=== PATIENT | male | born 1970 | race Two or more races ===

== ENCOUNTER 2016-06-09 08:47 | Observation (INO) | payer SELFPAY ==
--- NOTE | 2016-06-09 10:34 | ER Document Report ---
ED Cardiac - General Mode of Arrival: Medic Information source: Patient - HPI Patient complains to provider of: Chest pain Is the pain a: New problem Chest pain radiation location: None Cardiac risk factors: Dyslipidemia Associated symptoms: None <JAIME DARBY - Last Filed: 06/09/16 11:27> <VANESSATERESSA - Last Filed: 06/09/16 14:11> - General Chief Complaint: Chest Pain Stated Complaint: CHEST PAIN Notes: Patient is a 45-year-old Swiss-speaking male, who speaks some Sinhala, that presents to the emergency department today with complaints of chest pain with onset at 0700 this morning. Patient was at work when his chest pain began. Patient indicates his pain is in his left anterior chest. Patient went to an urgent care who called EMS to have him brought here for evaluation. Patient states he has hyperlipidemia but denies a history of coronary artery disease. Patient received nitroglycerin and aspirin prior to arrival which she states relieved his pain for the most part, but he states he still has a small amount of pain currently. Patient states the pain did not radiate and he describes it as constant and sharp. (JAIME DARBY) Past Medical History - General Information source: Patient - Social History Smoking Status: Current Every Day Smoker Cigarette use (# per day): Yes Frequency of alcohol use: None Drug Abuse: None Lives with: Family Family History: None. denies: CAD - Past Medical History Cardiac Medical History: Reports: Hx Hypercholesterolemia Past Surgical History: Reports: Hx Herniorrhaphy <JAIME DARBY - Last Filed: 06/09/16 11:27> Review of Systems - Review of Systems Constitutional: No symptoms reported EENT: No symptoms reported Cardiovascular: See HPI, Chest pain Respiratory: No symptoms reported Gastrointestinal: No symptoms reported Genitourinary: No symptoms reported Male Genitourinary: No symptoms reported Musculoskeletal: No symptoms reported Skin: No symptoms reported Hematologic/Lymphatic: No symptoms reported Neurological/Psychological: No symptoms reported -: Yes All other systems reviewed and negative <JAIME DARBY - Last Filed: 06/09/16 11:27> Physical Exam - General General appearance: Appears well, Alert - HEENT Head: Normocephalic, Atraumatic Eyes: Normal Extraocular movements intact: Yes Neck: Normal. No: Carotid bruit - Respiratory Respiratory status: No respiratory distress Chest status: Nontender Breath sounds: Normal - Cardiovascular Rhythm: Regular Heart sounds: Normal auscultation Murmur: No - Abdominal Inspection: Normal Distension: No distension Bowel sounds: Normal Tenderness: Nontender - Extremities General upper extremity: Normal inspection, Normal ROM. No: Edema General lower extremity: Normal inspection, Normal ROM. No: Edema - Neurological Neuro grossly intact: Yes Cognition: Normal Speech: Normal - Psychological Associated symptoms: Normal affect, Normal mood - Skin Skin Temperature: Warm Skin Moisture: Dry Skin Color: Normal <JAIME DARBY - Last Filed: 06/09/16 11:27> Course - Laboratory Result Diagrams: 06/09/16 09:55 <JAIME DARBY - Last Filed: 06/09/16 11:27> - Laboratory Result Diagrams: 06/09/16 09:55 06/09/16 09:55 - Diagnostic Test Radiology reviewed: Image reviewed, Reports reviewed - Chest x-ray does not show an acute process - EKG Interpretation by Ca EKG shows normal: Sinus rhythm, [place], Intervals, QRS Complexes, ST-T Waves Rate: Normal - 71 Rhythm: NSR - Consults Dr. Roblero Time consulted: 12:30 Consulted provider: will come to ER <TERESSA MENDEZ - Last Filed: 06/09/16 14:11> - Re-evaluation Re-evalutation: 06/09/16 12:30 Patient began having increasing chest pain, he was given one nitroglycerin by the nurse reports the pain went away with that nitroglycerin. (TERESSA MENDEZ) - Vital Signs Vital signs: Temp Pulse Resp BP Pulse Ox 20 117/73 99 06/09/16 13:25 06/09/16 13:21 06/09/16 13:25 (TERESSA MENDEZ) - Laboratory Laboratory results interpreted by wa: 06/09/16 06/09/16 09:55 09:55 WBC 3.7 L Seg Neutrophils % 26.7 L Lymphocytes % 58.0 H Eosinophils % 7.1 H Absolute Neutrophils 1.0 L Creatine Kinase 367 H (TERESSA MENDEZ) Discharge <JAIME DARBY - Last Filed: 06/09/16 11:27> - Discharge Admitting Provider: Hospitalist Unit Admitted: Telemetry <TERESSA MENDEZ - Last Filed: 06/09/16 14:11> - Discharge Clinical Impression: Chest pain Condition: Stable Disposition: ADMITTED OBSERVATION Scribe Attestation: 06/09/16 14:11 I personally performed the services described in the documentation, reviewed and edited the documentation which was dictated to the scribe in my presence, and it accurately records my words and actions. (TERESSA MENDEZ) Scribe Documentation - Scribe Written by Scrfaye:: Slick Grubbs, [id number] 06/09/2016 acting as scribe for :: Vanessa <JAIME DARBY - Last Filed: 06/09/16 11:27>
[2016-06-09 11:04] LABS: ABSOLUTE EOSINOPHILS # (AUTO) 0.3 10^3/uL (0.0-0.6); ABSOLUTE LYMPHOCYTES (AUTO) 2.1 10^3/uL (0.5-4.7); ABSOLUTE MONOCYTES (AUTO) 0.3 10^3/uL (0.1-1.4); BASOPHILS % (AUTO) 0.9 % (0-2); EOSINOPHILS % (AUTO) 7.1 % (0-6); HEMATOCRIT 43.9 % (37.9-51.0); HGB HCT DIFFERENCE 1.1; MEAN CORPUSCULAR HEMOGLOBIN 30.9 pg (27.0-33.4); MEAN CORPUSCULAR HGB CONC 34.3 g/dL (32.0-36.0); MEAN CORPUSCULAR VOLUME 90 fl (80-97); MONOCYTES % (AUTO) 7.3 % (3-13); RED BLOOD COUNT 4.86 10^6/uL (4.35-5.55); RED CELL DISTRIBUTION WIDTH 13.1 % (11.5-14.0); SEGMENTED NEUTROPHILS % (AUTO) 26.7 % (42-78); WHITE BLOOD COUNT 3.7 10^3/uL (4.0-10.5)
[2016-06-09] MEDS ORDERED: NITROGLYCERIN 0.4 MG/TAB 25 TAB/BOTTLE SL ONE (11:21)
[2016-06-09 11:24] LABS: CREATINE KINASE MB 0.89 ng/mL (<4.55)
[2016-06-09 11:25] LABS: TROPONIN I < 0.012 ng/mL
[2016-06-09 12:43] LABS: ADD ON TESTING BLD IN LAB ACKNOWLEDGE
[2016-06-09] MEDS ORDERED: ACETAMINOPHEN 325 MG TABLET PO PRN (12:55)
[2016-06-09 13:12] LABS: ALANINE AMINOTRANSFERASE 28 U/L (21-72); ALBUMIN 4.2 g/dL (3.5-5.0); ALKALINE PHOSPHATASE 70 U/L (38-126); ANION GAP 10 (5-19); ASPARTATE AMINO TRANSFERASE 25 U/L (17-59); BILIRUBIN,TOTAL 0.8 mg/dL (0.2-1.3); BLOOD UREA NITROGEN 20 mg/dL (7-20); CALCIUM 9.7 mg/dL (8.4-10.2); CARBON DIOXIDE 26 mmol/L (22-30); CHLORIDE 105 mmol/L (98-107); GLUCOSE 90 mg/dL (75-110); POTASSIUM 4.8 mmol/L (3.6-5.0); SODIUM 141.1 mmol/L (137-145); TOTAL PROTEIN 7.3 g/dL (6.3-8.2)
--- NOTE | 2016-06-09 13:27 | EKG REPORT ---
SEVERITY:- DEFECTIVE ECG - SINUS RHYTHM : Confirmed by: Bradley Lynch MD 09-Jun-2016 13:26:31
[2016-06-09 15:16] LABS: CREATINE KINASE MB 0.95 ng/mL (<4.55)
[2016-06-09 15:19] LABS: TROPONIN I < 0.012 ng/mL
[2016-06-09] MEDS ORDERED: ENOXAPARIN SODIUM INJ 40 MG/0.4 ML DISP.SYRIN SUBCUT ONE (17:00)
--- NOTE | 2016-06-09 17:58 | PDOC H&P ---
History of Present Illness Admission Date/PCP: 06/09/16 12:55 Patient complains of: Chest pain History of Present Illness: FREDO HERMOSILLO is a 45 year old male that presents to the emergency department via EMS for chest pain. Chest pain was relieved by nitroglycerin. Patient has history of hyperlipidemia and takes a cholesterol medicine but does not recall the name of the medication. He gets his medications filled at [facility] pharmacy. Patient is and Citizen Of [place]-speaking only. History is obtained by means of diversional therapist's assistant. Past Medical History Cardiac Medical History: Reports: Hyperlipidema EENT Medical History: Reports: None Neurological Medical History: Reports: None Endocrine Medical History: Reports: None Past Surgical History Past Surgical History: Reports: Herniorrhaphy Social History Information Source: Patient Lives with: Family Smoking Status: Current Every Day Smoker Frequency of Alcohol Use: None Hx Recreational Drug Use: No Hx Prescription Drug Abuse: No - Advance Directive Resuscitation Status: Full Code Family History Family History: None, CAD - Father age 74 Parental Family History Reviewed: Yes Children Family History Reviewed: Yes Sibling(s) Family History Reviewed.: Yes Medication/Allergy Home Medications: No Home Medications 06/09/16 Allergies/Adverse Reactions: No Known Allergies Allergy (Unverified 06/09/16 14:44) Review of Systems Constitutional: ABSENT: chills, fever(s), headache(s), weight gain, weight loss Eyes: ABSENT: visual disturbances Ears: ABSENT: hearing changes Cardiovascular: PRESENT: chest pain. ABSENT: dyspnea on exertion, edema, orthropnea, palpitations Respiratory: ABSENT: cough, hemoptysis Gastrointestinal: ABSENT: abdominal pain, constipation, diarrhea, hematemesis, hematochezia, nausea, vomiting Genitourinary: ABSENT: dysuria, hematuria Musculoskeletal: ABSENT: joint swelling Integumentary: ABSENT: rash, wounds Neurological: ABSENT: abnormal gait, abnormal speech, confusion, dizziness, focal weakness, syncope Psychiatric: ABSENT: anxiety, depression, homidical ideation, suicidal ideation Endocrine: ABSENT: cold intolerance, heat intolerance, polydipsia, polyuria Hematologic/Lymphatic: ABSENT: easy bleeding, easy bruising Physical Exam Vital Signs: Temp Pulse Resp BP Pulse Ox 98 F 78 16 132/86 H 100 06/09/16 16:08 06/09/16 16:08 06/09/16 16:08 06/09/16 16:08 06/09/16 16:08 Intake & Output 06/08/16 06/09/16 06/10/16 06:59 06:59 06:59 Intake Total 330 Output Total 400 Balance -70 Weight 72.575 kg PHYSICAL EXAM: GENERAL: Appears well, no acute distress HEENT: Normocephalic, no scleral icterus, conjunctiva clear, EOEM intact, PERRLA , moist mucous membranes NECK: trachea midline, no thyromegally RESPIRATORY: Clear to auscultation, no wheezes/rhonchi CARDIAC: Regular rate and rhythm, no murmur/alejandro/rub ABDOMEN: Soft, no distension, no tenderness, no guarding, normal bowel sounds, negative Desai sign RECTAL: deferred : deferred EXTREMITIES: No edema, cyanosis, clubbing MUSCULOSKELETAL: No joint swelling or deformity VASCULAR: normal peripheral pulses NEUROLOGIC: Alert, oriented to person/place/time, normal speech, cranial nerves grossly intact, 5/5 strength in all extremities, tactile sensation intact in all extremities SKIN: No rash, no wounds, no worrisome skin lesions PSYCHIATRIC: Normal mood, normal affect Results Laboratory Results: 06/09/16 06/09/16 14:27 14:27 Creatine Kinase 349 H CK-MB (CK-2) 0.95 Troponin I < 0.012 EKG Comments: Sinus rhythm, inverted T waves in lead III Impressions: Chest X-Ray 06/09/16 10:36 IMPRESSION: NO SIGNIFICANT RADIOGRAPHIC FINDING IN THE CHEST. Assessment & Plan - Diagnosis (1) Chest pain Is this a current diagnosis for this admission?: YesPlan: Patient will be placed in observation status. Monitor on telemetry. Check serial cardiac enzymes to rule out acute MS. Start aspirin. Stress test in a.m. (2) Tobacco abuse Is this a current diagnosis for this admission?: Yes (3) Hypercholesterolemia Is this a current diagnosis for this admission?: YesPlan: Verify home dose of medication from patient's pharmacy. Check lipid panel in morning. - Time Time Spent: 50 to 70 Minutes Anticipated discharge: Home Within: within 24 hours
[2016-06-09] MEDS ORDERED: INFLUENZA ADLT QUAD (36MOS+) 2016-17 VAC 0.5 ML SYR IM PRN (18:39)
[2016-06-09 22:03] LABS: CREATINE KINASE MB 0.69 ng/mL (<4.55)
[2016-06-09 22:06] LABS: TROPONIN I < 0.012 ng/mL
[2016-06-10 03:58] LABS: CHOLESTEROL 244.07 mg/dL (0-200); Direct HDL 51 mg/dL (>40); TRIGLYCERIDES 244 mg/dL (<150)
[2016-06-10 04:07] LABS: VLDL CHOLESTEROL 48.8 mg/dL (10-31)
[2016-06-10 04:12] LABS: DIRECT LDL 145 mg/dL (<100)
[2016-06-10 04:13] LABS: CREATINE KINASE MB 0.5 ng/mL (<4.55); TROPONIN I 0.021 ng/mL
[2016-06-10] MEDS ORDERED: ENOXAPARIN SODIUM INJ 40 MG/0.4 ML DISP.SYRIN SUBCUT SCH ×2 (08:00)
[2016-06-10] MEDS ORDERED: ASPIRIN 81 MG TABLET, ENT COATED PO SCH (10:00)
--- NOTE | 2016-06-10 16:07 | DRAGON STRESS TEST REPORT ---
EXERCISE TREADMILL CARDIOLITE STRESS TEST USING SINGLE PHOTON EMMISION COMPUTERIZED TOMOGRAPHIC. DATE OF PROCEDURE: June 10, 2016 INDICATION : Chest pain CARDIAC RISK FACTORS: Dyslipidemia, family history of CAD RESTING EKG: Sinus rhythm, no Baseline ST segment changes noted. STRESS EKG: No significant changes noted with exercise. REASON FOR TERMINATION: Dyspnea and fatigue. Patient denied any chest pain. PROCEDURE REPORT: Baseline heart rate 78 beats per minute with blood pressure of 142/90. Patient had no significant complaints. Patient exercised on standard Andres protocol for a total of 8 minutes and 27 seconds. Heart rate at peak exercise 144, at 81% of predicted maximum with a blood pressure at peak exercise 226/90. No significant additional ST segment changes were noted. Patient had no significant complaints or complications during the procedure or postprocedure. CONCLUSIONS: Negative for significant EKG changes with exercise at achieved heart rate and blood pressure response. Exercise tolerance is felt to be average. Clinical correlation and correlation with nuclear images is recommended. NUCLEAR DATA: At rest the patient was given 10.81 millicuries of technetium 99 sestamibi injected intravenously. As per protocol rest gated SPECT images were obtained. Subsequently the patient was injected with 31.3 millicuries of technetium 99 sestamibi compound at peak exercise, followed by flush with normal saline. Patient continued to exercise for additional 1-2 minutes. As per protocol stress gated images were obtained. NUCLEAR INTERPRETATION: Both raw and processed data were used for interpretation. Visual, qualitative, computer-generated quantitative data was used. There was good myocardial uptake of technetium compound. Motion artifact and soft tissue attenuations were noted. Increased visceral uptake was noted. No definitive areas of transient perfusion defect noted. No definitive areas of fixed perfusion defect or scars noted. EKG gated imaging showed LV EF at 46 %, rest and stress gated EF similar visually. T. I D. ratio was 0.96. Lung heart ratio noted to be within normal limits 0.37. No significant extracardiac and abnormal radiotracer activities were noted. RV free wall uptake was noted to be WNL. IMPRESSION: Also refer to comments under nuclear interpretation. Also test results needs to be interpreted in the context of pretest probability. 1. There is no definitive scintigraphic evidence of exercise induced myocardial ischemia at achieved heart rate and blood pressure response. Heart rate response suboptimal at 81% of predicted maximum, BP response adequate but with excessive increase in systolic blood pressure, double product adequate at 30.7 kcal 2. There is no definitive scintigraphic evidence of myocardial infarction/scar. 3. EKG gated imaging shows left ejection fraction of approximately 48 %. 4. Exercise tolerance is noted to be average for patient age. RECOMMENDATIONS: Aggressive risk factor modification, medical therapy. Clinical correlation with echocardiogram derived ejection fraction. Consider cardiology consultation if clinically indicated. I AM AVAILABLE FOR CARDIOLOGY CONSULTATION AND FOLLOWUP IF REQUESTED BY PMD Magdalene Godwin M.D., [employer] corporate investigator, Board certified in cardiovascular diseases, Nuclear cardiology, Echocardiography Cardiac CT and cardiac MRI Ph. [phone] [facility]
--- NOTE | 2016-06-10 17:15 | PDOC DISCHARGE SUMMARY ---
General - Admit/Disc Date/PCP Admission Date/Primary Care Provider: 06/09/16 12:55 Discharge Date: 06/10/16 - Discharge Diagnosis (1) Chest pain Is this a current diagnosis for this admission?: Yes (2) Tobacco abuse Is this a current diagnosis for this admission?: Yes (3) Hypercholesterolemia Is this a current diagnosis for this admission?: Yes - Additional Information Resuscitation Status: Full Code Discharge Diet: Cardiac Discharge Activity: Activity As Tolerated Home Medications: Aspirin [Ecotrin 81 mg EC Tablet] 81 mg PO DAILY tabec 06/10/16 Atorvastatin Calcium [Lipitor 20 mg Tablet] 20 mg PO QHS #30 tablet 06/10/16 History of Present Illness Patient complains of: Chest pain History of Present Illness: FREDO HERMOSILLO is a 45 year old male that presents to the emergency department via EMS for chest pain. Chest pain was relieved by nitroglycerin. Patient has history of hyperlipidemia and takes a cholesterol medicine but does not recall the name of the medication. He gets his medications filled at [facility] pharmacy. Patient is and [place]-speaking only. History is obtained by means of funeral greeter. Hospital Course Hospital Course: Patient was admitted for chest pain. Ruled out for acute VT by serial cardiac enzymes. Stress test negative for ischemia/infarction. She was started on low- dose aspirin and Lipitor. Patient is advised to discontinue previous cholesterol medicine. He is to follow-up with his primary care provider as scheduled on Wednesday in [facility]. Patient is chest pain-free at time of discharge. Physical Exam Vital Signs: Temp Pulse Resp BP Pulse Ox 98.1 F 66 16 117/71 98 06/10/16 15:15 06/10/16 15:15 06/10/16 15:15 06/10/16 15:15 06/10/16 15:15 Intake & Output 06/09/16 06/10/16 06/11/16 06:59 06:59 06:59 Intake Total 350 Output Total 1000 Balance -650 Weight 65.4 kg GENERAL: No acute distress HEENT: Conjunctiva clear, nonicteric, moist mucous membranes, no JVD, midline trachea RESPIRATORY: Clear to auscultation bilaterally, no wheezes, no rhonchi CARDIAC: Regular rate and rhythm, no murmurs/gallops/rubs ABDOMEN: Soft, nondistended, nontender, positive bowel sounds, no rebound, no guarding EXTREMETIES: No edema, cyanosis, clubbing NEUROLOGIC: Alert, oriented to person/place/time, CN's grossly intact, no focal deficits SKIN: No rash, wounds PSYCH: Normal mood, normal affect Results Laboratory Results: 06/10/16 03:36 Triglycerides 244 H Cholesterol 244.07 H LDL Cholesterol Direct 145 H VLDL Cholesterol 48.8 H HDL Cholesterol 51 06/09/16 06/09/16 06/09/16 14:27 14:27 21:20 Creatine Kinase 349 H 306 H CK-MB (CK-2) 0.95 Troponin I < 0.012 06/09/16 06/10/16 06/10/16 21:20 03:36 03:36 Creatine Kinase 262 H CK-MB (CK-2) 0.69 0.50 Troponin I < 0.012 0.021 Labs- Last Values WBC 3.7 10^3/uL (4.0-10.5) L 06/09/16 09:55 RBC 4.86 10^6/uL (4.35-5.55) 06/09/16 09:55 Hgb 15.0 g/dL (13.5-17.0) 06/09/16 09:55 Hct 43.9 % (37.9-51.0) 06/09/16 09:55 MCV 90 fl (80-97) 06/09/16 09:55 MCH 30.9 pg (27.0-33.4) 06/09/16 09:55 MCHC 34.3 g/dL (32.0-36.0) 06/09/16 09:55 RDW 13.1 % (11.5-14.0) 06/09/16 09:55 Plt Count 226 10^3/uL (150-450) 06/09/16 09:55 Seg Neutrophils % 26.7 % (42-78) L 06/09/16 09:55 Lymphocytes % 58.0 % (13-45) H 06/09/16 09:55 Monocytes % 7.3 % (3-13) 06/09/16 09:55 Eosinophils % 7.1 % (0-6) H 06/09/16 09:55 Basophils % 0.9 % (0-2) 06/09/16 09:55 Absolute Neutrophils 1.0 10^3/uL (1.7-8.2) L 06/09/16 09:55 Absolute Lymphocytes 2.1 10^3/uL (0.5-4.7) 06/09/16 09:55 Absolute Monocytes 0.3 10^3/uL (0.1-1.4) 06/09/16 09:55 Absolute Eosinophils 0.3 10^3/uL (0.0-0.6) 06/09/16 09:55 Absolute Basophils 0.0 10^3/uL (0.0-0.2) 06/09/16 09:55 Sodium 141.1 mmol/L (137-145) 06/09/16 09:55 Potassium 4.8 mmol/L (3.6-5.0) 06/09/16 09:55 Chloride 105 mmol/L (98-107) 06/09/16 09:55 Carbon Dioxide 26 mmol/L (22-30) 06/09/16 09:55 Anion Gap 10 (5-19) 06/09/16 09:55 BUN 20 mg/dL (7-20) 06/09/16 09:55 Creatinine 0.80 mg/dL (0.52-1.25) 06/09/16 09:55 Est GFR ( Amer) > 60 (>60) 06/09/16 09:55 Est GFR (Non-Af Amer) > 60 (>60) 06/09/16 09:55 Glucose 90 mg/dL (75-110) 06/09/16 09:55 Calcium 9.7 mg/dL (8.4-10.2) 06/09/16 09:55 Total Bilirubin 0.8 mg/dL (0.2-1.3) 06/09/16 09:55 Direct Bilirubin 0.0 mg/dL (0.0-0.3) 06/09/16 09:55 AST 25 U/L (17-59) 06/09/16 09:55 ALT 28 U/L (21-72) 06/09/16 09:55 Alkaline Phosphatase 70 U/L (38-126) 06/09/16 09:55 Creatine Kinase 262 U/L (55-170) H 06/10/16 03:36 CK-MB (CK-2) 0.50 ng/mL (<4.55) 06/10/16 03:36 Troponin I 0.021 ng/mL 06/10/16 03:36 Total Protein 7.3 g/dL (6.3-8.2) 06/09/16 09:55 Albumin 4.2 g/dL (3.5-5.0) 06/09/16 09:55 Triglycerides 244 mg/dL (<150) H 06/10/16 03:36 Cholesterol 244.07 mg/dL (0-200) H 06/10/16 03:36 LDL Cholesterol Direct 145 mg/dL (<100) H 06/10/16 03:36 VLDL Cholesterol 48.8 mg/dL (10-31) H 06/10/16 03:36 HDL Cholesterol 51 mg/dL (>40) 06/10/16 03:36 Impressions: Chest X-Ray 06/09/16 10:36 IMPRESSION: NO SIGNIFICANT RADIOGRAPHIC FINDING IN THE CHEST. Qualifiers PATEINT BEING DISCHARGED WITH ANY OF THE FOLLOWING DIAGNOSIS?: No Plan Time Spent: Less than 30 Minutes
[2016-06-10 18:38] VITALS: BP 132/86
== END 2016-06-10 19:00 | disposition home or self-care (01) ==
LOC: ER 08:47 → EH 12:55 → 5 16:31
PROVIDERS: ADMIT Family Medicine; ATTEND Family Medicine
DX: R07.9 Chest pain, unspecified (principal); E78.00 Pure hypercholesterolemia, unspecified; E78.5 Hyperlipidemia, unspecified; Z79.899 Other long term (current) drug therapy; F17.210 Nicotine dependence, cigarettes, uncomplicated
CPT/HCPCS: 99285; 93005; 36415 ×2; 82553 ×2; 82550 ×2; 85025; 80053; 84484 ×2; 80061; 93017; 71010; 78452; 90686; 93010; G0378 ×3; A9500; J1650 ×2; J3490 ×2; Q9969